=== PATIENT | female | born 2000 | race American Indian/Alaskan Native ===

== ENCOUNTER 2021-09-01 14:47 | Emergency (ER) | payer BC, MEDICAID ==
[2021-09-01 15:25] LABS: ANION GAP 14.1 mEq/L (7-13); CHLORIDE,CL 105 mmol/L (98-107); SODIUM,NA 142 mmol/L (136-145)
[2021-09-01 15:30] VITALS: BP 149/79; PULSE 67
== END 2021-09-01 16:12 | disposition home or self-care (01) ==
LOC: DL.ED 14:47
DX: S86.312A Strain of muscle(s) and tendon(s) of peroneal muscle group at lower leg level, left leg, initial encounter (principal); Z91.048 Other nonmedicinal substance allergy status
CPT/HCPCS: 36415; 80053; 85025; 85379; 99283

== ENCOUNTER 2022-07-27 14:08 | Emergency (ER) | payer MEDICAID ==
[2022-07-27] MEDS ORDERED: Ondansetron 4 MG/2 ML SDV IV ONE (14:40)
[2022-07-27] MEDS ORDERED: HYDROmorphone 1 MG/ML Syringe IVPUSH ONE ×2 (14:40→16:02)
[2022-07-27] MEDS ORDERED: Sodium Chloride 0.9% 1,000 ML IV ONE (14:40)
[2022-07-27] MEDS ORDERED: Sodium Chloride 0.9% 10 ML Syringe FLUSH PRN (14:40)
[2022-07-27 15:15] LABS: AMPHETAMINES,URINE NEGATIVE (NEGATIVE); BARBITURATES,URINE NEGATIVE (NEGATIVE); BENZODIAZEPINE,URINE NEGATIVE (NEGATIVE); MDMA (ECSTASY), URINE NEGATIVE (NEGATIVE); METHADONE,URINE NEGATIVE (NEGATIVE); METHAMPHETAMINES,URINE NEGATIVE (NEGATIVE); OPIATES,URINE NEGATIVE (NEGATIVE); OXYCODONE,URINE NEGATIVE (NEGATIVE); PHENCYCLIDINE,URINE NEGATIVE (NEGATIVE); TCA,URINE NEGATIVE (NEGATIVE)
[2022-07-27 15:46] LABS: ANION GAP 13.6 mEq/L (7-13); CHLORIDE,CL 102 mmol/L (98-107); ESTIMATED GFR 123 mL/min (>=60); SODIUM,NA 140 mmol/L (136-145)
[2022-07-27] MEDS ORDERED: Iopamidol 612 MG/ML 50 ML SDV IVPUSH ONE (15:49)
[2022-07-27] MEDS ORDERED: Iopamidol 612 MG/ML 100 ML Bottle IVPUSH ONE (15:49)
[2022-07-27 15:50] LABS: CORONAVIRUS COVID-19 NAA NEGATIVE (NEGATIVE); RESPIRATORY SYNCYTIAL VIR NAA NEGATIVE (NEGATIVE)
[2022-07-27] MEDS ORDERED: Piperacillin/Tazobactam 4.5 GM in Sodium Chloride 0.9% 100 ML IV ONE (16:55)
[2022-07-27] MEDS ORDERED: Oseltamivir 75 MG Cap PO ONE (16:55)
== END 2022-07-27 17:47 ==
LOC: DL.ED 14:08
DX: K35.30 Acute appendicitis with localized peritonitis, without perforation or gangrene (principal); J10.1 Influenza due to other identified influenza virus with other respiratory manifestations; R00.0 Tachycardia, unspecified; Z91.048 Other nonmedicinal substance allergy status; Z20.822 Contact with and (suspected) exposure to COVID-19
CPT/HCPCS: 0241U; 36415; 71045; 74177; 80053; 80305-QW; 81001; 81025; 82150; 83605; 83690; 84484; 85025; 87040; 87081; 87430; 93005; 96361; 96365; 96375; 96376; 99284-25; A9270-GY; J1170; J2405; J2543; J3490; J7030; Q9967

== ENCOUNTER 2022-09-08 14:37 | Emergency (ER) | payer MEDICAID ==
[2022-09-08 15:02] VITALS: BP 140/93; PULSE 126
[2022-09-08] MEDS ORDERED: Sodium Chloride 0.9% 10 ML Syringe FLUSH PRN (15:05)
[2022-09-08] MEDS ORDERED: Iopamidol 612 MG/ML 100 ML Bottle IVPUSH ONE (15:05)
[2022-09-08] MEDS ORDERED: Lidocaine 2% 100 MG/5 ML Syringe ONE (16:07)
[2022-09-08] MEDS ORDERED: Lidocaine 1% 10 ML MDV ONE (16:35)
[2022-09-08] MEDS ORDERED: Acetaminophen 500 MG Tab PO ONE (16:57)
[2022-09-08] MEDS ORDERED: Ketorolac 30 MG/ML SDV IVPUSH ONE (16:57)
[2022-09-08] MEDS ORDERED: Penicillin G Benzathine/Procaine 600-600 1.2 Millunits/2 ML Syringe IM ONE (16:57)
[2022-09-08] MEDS ORDERED: Dexamethasone 4 MG/ML SDV IVPUSH ONE (17:11)
== END 2022-09-08 17:30 | disposition home or self-care (01) ==
LOC: DL.ED 14:37
DX: J36 Peritonsillar abscess (principal); Z91.09 Other allergy status, other than to drugs and biological substances
CPT/HCPCS: 42700; 70491; 87081; 87430; 96372; 96374; 96375; 99284; A9270; J0558; J1100; J1885; J3490; Q9967

== ENCOUNTER 2023-03-23 10:39 | Emergency (ER) | payer MEDICAID ==
[2023-03-23 11:10] VITALS: BP 145/92; PULSE 100
[2023-03-23] MEDS: Dexamethasone 4 MG/ML SDV IM ONE (11:22)
[2023-03-23] MEDS: Penicillin G Benzathine/Procaine 600-600 1.2 Millunits/2 ML Syringe IM ONE (11:23)
== END 2023-03-23 11:26 | disposition home or self-care (01) ==
LOC: DL.ED 10:39
DX: J02.9 Acute pharyngitis, unspecified (principal); Z91.048 Other nonmedicinal substance allergy status; Z86.16 Personal history of COVID-19
CPT/HCPCS: 96372; 99282; 99283; J0558; J1100

== ENCOUNTER 2023-03-26 14:02 | Emergency (ER) | payer MEDICAID ==
[2023-03-26 14:51] VITALS: BP 124/65; PULSE 80
[2023-03-26] MEDS ORDERED: Dexamethasone 4 MG/ML SDV IVPUSH ONE (15:48)
[2023-03-26] MEDS ORDERED: Sodium Chloride 0.9% 10 ML Syringe FLUSH PRN (15:48)
[2023-03-26] MEDS ORDERED: cefTRIAXone 2 GM Vial IVPUSH ONE (15:48)
[2023-03-26] MEDS ORDERED: Sodium Chloride 0.9% 1,000 ML IV ONE (15:49)
[2023-03-26] MEDS ORDERED: Azithromycin 500 MG in Sodium Chloride 0.9% 250 ML IV ONE (15:49)
== END 2023-03-26 17:30 | disposition home or self-care (01) ==
LOC: DL.ED 14:02
DX: J36 Peritonsillar abscess (principal); Z86.16 Personal history of COVID-19; Z91.048 Other nonmedicinal substance allergy status
CPT/HCPCS: 36415; 86308; 87081; 87430; 87635; 87804; 96365; 96375; 99283; J0456; J0696; J1100; J7030; J7050; J3490; U0002